=== PATIENT | male | born 1950 | race Caucasian/White ===

== ENCOUNTER 2021-02-19 02:26 | Inpatient (IN) ==
[2021-02-19] MEDS ORDERED: IOPAMIDOL 100 ML BOTTLE IV ONE (02:27)
[2021-02-19] MEDS ORDERED: HYDROmorphone 0.5 MG/0.5 ML SYRINGE IV PRN (02:40)
[2021-02-19] MEDS ORDERED: ONDANSETRON 4 MG/2 ML VIAL IV ONE (02:40)
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
[2021-02-19 03:52] LABS: Basophils # (Auto) 0.04 K/mcL (0.00-0.20); Basophils % (Auto) 0.4 % (0.0-2.0); Eosinophils # (Auto) 0.19 K/mcL (0.00-0.70); Eosinophils % (Auto) 1.8 % (0.0-7.0); Hematocrit 44.7 % (41.0-55.0); Hemoglobin 15.6 g/dL (13.5-16.5); Lymphocytes # (Auto) 1.54 K/mcL (1.50-4.80); Lymphocytes % (Auto) 14.3 % (15.0-49.0); Mean Cell Volume 88.5 fL (80.0-100.0); Mean Corpuscular HGB Conc 34.9 g/dL (31.0-36.0); Monocytes # (Auto) 0.63 K/mcL (0.10-0.90); Monocytes % (Auto) 5.9 % (1.0-12.0); Neutrophils % (Auto) 77.6 % (38.0-78.0); Platelet Count 238 K/mcL (140-440); RBC 5.05 M/mcL (4.50-5.90); Red Cell Distribution Width 12.2 % (11.5-14.5); WBC 10.7 K/mcL (4.5-11.0)
[2021-02-19 04:05] LABS: ALT/SGPT 14 U/L (<40); AST/SGOT 16 U/L (<40); Albumin 4.3 gm/dL (3.2-5.2); Albumin/Globulin Ratio 1.7 (1.0-2.3); Alkaline Phosphatase 57 U/L (39-117); Bilirubin,Total 0.7 mg/dL (0.1-1.0); Blood Urea Nitrogen 20 mg/dL (8-23); Calcium 9.1 mg/dL (8.6-10.4); Carbon Dioxide 22 mmol/L (22-30); Chloride 103 mmol/L (96-108); Globulin 2.5 gm/dL (2.2-3.7); Glomerular Filtration Rate 85; Glucose 109 mg/dL (70-105)
[2021-02-19 04:16] LABS: INR 0.9 (0.9-1.1); Prothrombin Time 12.1 sec (11.9-14.5)
[2021-02-19] MEDS ORDERED: LORazepam 2 MG/ML VIAL IV ONE (05:32)
[2021-02-19] MEDS ORDERED: fentaNYL 100 MCG/2 ML VIAL IV ONE (05:32)
[2021-02-19] MEDS ORDERED: LIDOCAINE JEL 2% 1 TUBE 5ML TOPICAL ONE (05:33)
--- NOTE | 2021-02-19 06:38 | XRay Report ---
INDICATION: NG placement confirmation TECHNIQUE: AP portable upright COMPARISON: CT scan dated 02/19/2021 FINDINGS:Esophagogastric tube with its tip in the body of the stomach. Prominent gas-filled small bowel identified in the upper abdomen. There is no pneumoperitoneum IMPRESSION: Esophagogastric tube in the stomach Interpreted and Authenticated by: Augustin Barragan 02/19/21
--- NOTE | 2021-02-19 06:59 | Cat Scan Report ---
INDICATION: abd pain COMPARISON: Previous CT scan dated 09/18/2015 TECHNIQUE: Axial images were obtained through the abdomen and pelvis. Sagittally and coronally reformatted images. 80 Isovue 370 injected intravenously. Oral contrast material was not administered FINDINGS: Examination was initially interpreted by [facility]. Lung bases:Small focal groundglass infiltrate within the lingular segment of the left upper lobe. Lung bases are otherwise negative Liver: Probable hepatic steatosis. Liver is otherwise negative. No focal intrahepatic mass. No focal abnormality. Liver contour is smooth. No evidence for cirrhosis Gallbladder, bilary: There is at least one gallstone. No gallbladder wall thickening. No dilated intra or extrahepatic bile ducts. Spleen:No splenomegaly. Normal enhancement of splenic and portal veins. Pancreas:No pancreatic mass. No peripancreatic abnormality Adrenal glands:Negative Kidneys, ureters, bladder:No solid renal mass. No hydronephrosis. No obstructing calculi. There is a benign right renal cyst. There is no hydroureter. No ureteral stone No bladder calculi or detectable mass Gastrointestinal:Previous surgery at the gastroesophageal junction. Previous partial colectomy. There is an anastomotic suture line within the sigmoid colon. Dilated fluid-filled small bowel. Appearance is consistent with mechanical small bowel obstruction. Jejunum is dilated to approximately 3.7 cm in cross-sectional diameter. There is small bowel feces with in the midline pelvis. Appearance is consistent with transition point. There is no discrete mass. No evidence for closed loop obstruction. Appendix: The appendix is removed Vascular:There is atherosclerotic calcification of the abdominal aorta. No abdominal aortic aneurysm. Celiac trunk, superior mesenteric artery, inferior mesenteric artery are patent Lymphatic:No retroperitoneal or mesenteric adenopathy Mesentery, peritoneum: No free intraperitoneal fluid. There is no pneumoperitoneum. No intra-abdominal abscess or mass. Reproductive:Mild prostatic enlargement Musculoskeletal:Degenerative disc disease at L4-L5. No lumbar compression fractures. Sacrum and pelvis are negative. Hips are negative No abdominal wall or inguinal hernia IMPRESSION: 1. Mechanical small bowel obstruction with transition point in the mid pelvis 2. Previous partial colectomy. There is a sigmoid colonic anastomosis 3. Probable hepatic steatosis. 4. Cholelithiasis. 5. Small focal groundglass infiltrate in the lingular segment of the left upper lobe The exam was performed using radiation dose optimization techniques including, but not limited to, automated exposure control, adjustment of the mA and/or kV according to patient size and use of iterative reconstruction technique. Interpreted and Authenticated by: Augustin Barragan 02/19/21
[2021-02-19] MEDS ORDERED: morphine 2 MG/ML VIAL IV PRN (07:20)
[2021-02-19 07:54] LABS: Appearance,Urine CLEAR (Clear); Bilirubin,Urine Negative (Negative); Color,Urine YELLOW; Culture Indicated,Urine No; Glucose,Urine (UA) Negative (Negative); Ketones,Urine Negative (Negative); Leukocyte Esterase,Urine Negative /ug (Negative); Mucus,Urine FEW /hpf; Nitrate,Urine Negative (Negative); Protein,Urine Negative (Negative); Specific Gravity,Urine > 1.060 (1.000-1.035); Urine Blood 0.03 mg/dL (Negative); Urine RBC 3 /hpf (0-3); Urine Squamous Epithelial Cell 0 /hpf (0-4); Urine WBC 1 /hpf (0-4)
[2021-02-19] MEDS: 0.9 % SODIUM CHLORIDE 1,000 ML IV SCH ×2 (08:53→18:04)
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
[2021-02-19] MEDS ORDERED: HYDROmorphone 1 MG/ML SYRINGE IV PRN (13:21)
[2021-02-19] MEDS ORDERED: ONDANSETRON 4 MG/2 ML VIAL IV PRN (14:03)
[2021-02-19] MEDS: PANTOPRAZOLE 40 MG VIAL IV SCH (16:58)
[2021-02-19] MEDS: METOCLOPRAMIDE 10 MG/2 ML VIAL IV SCH ×2 (16:58→23:54)
[2021-02-20] MEDS: 0.9 % SODIUM CHLORIDE 1,000 ML IV SCH ×3 (04:11→23:46)
[2021-02-20] MEDS: METOCLOPRAMIDE 10 MG/2 ML VIAL IV SCH ×4 (05:58→23:42)
--- NOTE | 2021-02-20 06:34 | XRay Report ---
INDICATION: FOLLOW -UP OF SMALL BOWEL OBSTRUCTION TECHNIQUE: Supine and upright abdomen. COMPARISON: Previous CT scan dated 02/19/2021 FINDINGS:Esophagogastric tube in the stomach. There is gas and fecal material within the colon. There is gas-filled small bowel in the left upper quadrant. Bowel gas pattern is improved consistent with resolving mechanical small bowel shortened. There is no pneumoperitoneum. No biliary or portal venous gas. No pneumatosis. IMPRESSION: Improved bowel gas pattern Interpreted and Authenticated by: Augustin Barragan 02/20/21
[2021-02-20] MEDS: PANTOPRAZOLE 40 MG VIAL IV SCH ×2 (07:11→17:55)
[2021-02-20 07:36] LABS: Basophils # (Auto) 0.03 K/mcL (0.00-0.20); Basophils % (Auto) 0.4 % (0.0-2.0); Eosinophils # (Auto) 0.31 K/mcL (0.00-0.70); Eosinophils % (Auto) 4.3 % (0.0-7.0); Hematocrit 44.3 % (41.0-55.0); Hemoglobin 14.8 g/dL (13.5-16.5); Lymphocytes # (Auto) 1.77 K/mcL (1.50-4.80); Lymphocytes % (Auto) 24.7 % (15.0-49.0); Mean Cell Volume 89.5 fL (80.0-100.0); Mean Corpuscular HGB Conc 33.4 g/dL (31.0-36.0); Mean Platelet Volume 10.2 fL (7.4-10.4); Monocytes # (Auto) 0.57 K/mcL (0.10-0.90); Monocytes % (Auto) 7.9 % (1.0-12.0); Neutrophils % (Auto) 62.7 % (38.0-78.0); Platelet Count 201 K/mcL (140-440); RBC 4.95 M/mcL (4.50-5.90); Red Cell Distribution Width 12.1 % (11.5-14.5); WBC 7.2 K/mcL (4.5-11.0)
[2021-02-20 08:12] LABS: ALT/SGPT 10 U/L (<40); AST/SGOT 13 U/L (<40); Albumin 3.9 gm/dL (3.2-5.2); Albumin/Globulin Ratio 1.8 (1.0-2.3); Alkaline Phosphatase 52 U/L (39-117); Bilirubin,Direct 0.4 mg/dL (<0.3); Bilirubin,Total 1.1 mg/dL (0.1-1.0); Blood Urea Nitrogen 12 mg/dL (8-23); Calcium 8.7 mg/dL (8.6-10.4); Carbon Dioxide 22 mmol/L (22-30); Chloride 107 mmol/L (96-108); Globulin 2.2 gm/dL (2.2-3.7); Glomerular Filtration Rate 75; Glucose 106 mg/dL (70-105); Lactate Dehydrogenase 179 U/L (135-225); Phosphorous 2.6 mg/dL (2.5-4.5); Triglycerides 94 mg/dL (<150); Uric Acid 6.3 mg/dL (2.5-8.0)
[2021-02-20] MEDS ORDERED: DIATRIZOATE MEGLU/DIATRIZO SOD 30 ML BOTTLE PO ONE (12:04)
--- NOTE | 2021-02-20 12:29 | XRay Report ---
INDICATION: R/O SMALL BOWEL OBSTRUCTION TECHNIQUE: Routine small bowel study with dilute Gastrografin COMPARISON: Previous CT scan dated 02/19/2021 FINDINGS: Contrast material passes rapidly throughout the GI tract. There is contrast material in the rectum by 30 minutes post ingestion. Small bowel appears normal. No transition point. No significant dilatation IMPRESSION: 1. Normal Gastrografin small bowel study. Contrast material in the rectum by 30 minutes post ingestion 2. Findings consistent with resolution of mechanical small bowel obstruction Interpreted and Authenticated by: Augustin Barragan 02/20/21
--- NOTE | 2021-02-20 16:56 | General Surgery Progress Note ---
SUBJECTIVE Subjective Patient information: Note initiated : 02/20/21 at 4:50 pm Service Date, if different from initiated Date: [] Patient: Aleksandr Shields 70 y/o M admitted on 02/19/21 for Diffuse Abd pain. Chief Complaint: [] Principal diagnosis: Partial small bowel obstruction Interval history: Patient did well during the night and had some flatus. Small bowel follow-through was done earlier today and it showed transit through the bowel into the colon within 1 hour. He has had multiple bowel movements since then. He was given a full liquid diet earlier today and is tolerated that. He has no discomfort at this time. White blood count 7.2, hemoglobin 14.8, hematocrit 44.3, potassium 3.8, BUN 12, creatinine 1. Constitutional Vitals: Vital Signs Temp Pulse Resp BP Pulse Ox 97.7 F 98 H 12 122/84 96 02/20/21 12:00 02/20/21 12:00 02/20/21 12:00 02/20/21 12:00 02/20/21 12:00 Period Temp Pulse Resp BP Sys/Reyes Pulse Ox Last 24 Hr 97.7 F-98.6 F 66-98 12-12 96-136/54-84 95-99 Intake and Output 02/20/21 02/20/21 02/20/21 05:59 13:59 21:59 Intake Total 1000 1000 Output Total 350 950 Balance 650 -950 1000 Weight 181 lb Patient Weight 02/21/21 05:59 Weight 181 lb Intake & Output: Intake & Output 02/20/21 02/20/21 02/20/21 05:59 13:59 21:59 Intake Total 1000 1000 Output Total 350 950 Balance 650 -950 1000 Weight 181 lb Intake: IV 1000 1000 Sodium Chloride 0.9% 1,000 ml @ 1000 1000 100 mls/hr IV .Q10H [facility] Rx#: [id number] Oral 0 Output: Gastric Drainage 75 50 Right Nare 75 50 Void Amount 275 900 Other: Urine Appearance Clear Clear Urine Color Dark Yellow Bright Yellow Urine Odor Normal Stool Size Large Stool Color Brown Stool Consistency Watery Head Head exam: Present atraumatic, normal inspection and normocephalic Eye Eye exam: Present EOMI and normal appearance Pupils: Present PERRL ENT ENT exam: Present normal exam and normal oropharynx Neck Neck exam: Present full ROM; Absent tenderness Respiratory Respiratory exam: Present normal respiratory exam and CTAB; Absent rales, rhonchi and wheezes Cardiovascular Cardiovascular exam: Present normal rate and rhythm, RRR, +S1 and +S2 GI/Abdominal GI/Abdominal exam: Present normal bowel sounds and soft; Absent distended, guarding and tenderness Extremities Exam Extremities exam: Present full ROM, normal inspection and neurovascular intact Back Exam Back exam: Absent tenderness Neurological Exam Neurological exam: Present normal gait, oriented X3 and reflexes normal Psychiatric Psychiatric exam: Present normal affect and normal mood A/P Assessment and plan (1) Small bowel obstruction due to postoperative adhesions: Status: Acute (2) Depression: Status: Chronic (3) GERD (gastroesophageal reflux disease): Status: Chronic Qualifiers: Esophagitis presence: without esophagitis Qualified Code(s): K21.9 - Gastro-esophageal reflux disease without esophagitis (4) Polymyalgia rheumatica: Status: Chronic (5) Cardiomyopathy: Status: Chronic Qualifiers: Cardiomyopathy type: ischemic Qualified Code(s): I25.5 - Ischemic cardiomyopathy (6) Presence of cardiac pacemaker: Status: Chronic Comment: Permanent [employer] Breaks XT DR MRI, dual chamber pacemaker - Serial # [id number] (7) CAD (coronary artery disease): Status: Chronic Qualifiers: Coronary Disease-Associated Artery/Lesion type: [place] artery [place] vs. transplanted heart: [place] heart Associated angina: without angina Qualified Code(s): I25.10 - Atherosclerotic heart disease of [place] coronary artery without angina pectoris Narrative A/P Narrative: Follow-up abdominal x-rays in the morning Time Spent With Patient Time: Total time spent is greater than 50% in coordination of care (as documented) at patient's floor/unit and/or counseling patient:
[2021-02-21] MEDS: METOCLOPRAMIDE 10 MG/2 ML VIAL IV SCH ×3 (05:33→16:23)
--- NOTE | 2021-02-21 06:44 | XRay Report ---
INDICATION: FOLLOW -UP OF SMALL BOWEL OBSTRUCTION TECHNIQUE: Supine and upright abdomen. COMPARISON: Previous small bowel study dated 02/20/2021. Previous CT scan dated 02/19/2021 FINDINGS:There is contrast material within the colon. No residual contrast material within small bowel. Appearance is improved and consistent with resolution of mechanical small bowel obstruction IMPRESSION: Resolution of mechanical small bowel obstruction Interpreted and Authenticated by: Augustin Barragan 02/21/21
[2021-02-21 06:57] LABS: Basophils # (Auto) 0.04 K/mcL (0.00-0.20); Basophils % (Auto) 0.7 % (0.0-2.0); Eosinophils # (Auto) 0.34 K/mcL (0.00-0.70); Eosinophils % (Auto) 5.9 % (0.0-7.0); Hemoglobin 13.6 g/dL (13.5-16.5); Lymphocytes # (Auto) 1.82 K/mcL (1.50-4.80); Lymphocytes % (Auto) 31.7 % (15.0-49.0); Mean Cell Volume 91.1 fL (80.0-100.0); Mean Corpuscular HGB Conc 33.2 g/dL (31.0-36.0); Mean Platelet Volume 10.2 fL (7.4-10.4); Monocytes # (Auto) 0.41 K/mcL (0.10-0.90); Monocytes % (Auto) 7.1 % (1.0-12.0); Neutrophils % (Auto) 54.6 % (38.0-78.0); Platelet Count 183 K/mcL (140-440); WBC 5.7 K/mcL (4.5-11.0)
[2021-02-21] MEDS: PANTOPRAZOLE 40 MG VIAL IV SCH ×2 (07:28→16:23)
[2021-02-21 08:04] LABS: ALT/SGPT 8 U/L (<40); AST/SGOT 10 U/L (<40); Albumin 3.5 gm/dL (3.2-5.2); Albumin/Globulin Ratio 1.5 (1.0-2.3); Alkaline Phosphatase 47 U/L (39-117); Bilirubin,Direct 0.2 mg/dL (<0.3); Bilirubin,Total 0.8 mg/dL (0.1-1.0); Blood Urea Nitrogen 10 mg/dL (8-23); Calcium 8.8 mg/dL (8.6-10.4); Carbon Dioxide 21 mmol/L (22-30); Chloride 111 mmol/L (96-108); Globulin 2.3 gm/dL (2.2-3.7); Glomerular Filtration Rate 85; Glucose 98 mg/dL (70-105); Lactate Dehydrogenase 168 U/L (135-225); Phosphorous 2.5 mg/dL (2.5-4.5); Triglycerides 70 mg/dL (<150); Uric Acid 6.1 mg/dL (2.5-8.0)
[2021-02-21] MEDS: 0.9 % SODIUM CHLORIDE 1,000 ML IV SCH (10:14)
--- NOTE | 2021-02-26 12:26 | Discharge Summary ---
Discharge Provider Provider Patient information: Note initiated : 02/26/21 at 12:21 pm Service Date, if different from initiated Date: [] Patient: Aleksandr Shields 70 y/o M admitted on 02/19/21 for Diffuse Abd pain. Chief Complaint: [] Date of admission: 02/19/21 07:46 Discharge date: 02/21/21 Primary care physician: Shimon Penaloza MD Admitting clinician: Michael Garrett Consults: 02/20/21 07:17 Consult to Physician [CONS] Routine Comment: Consulting Provider: Michael Garrett Reason For Exam: Physician to Consult Attending physician on discharge: Michael Garrett Discharging clinician: Michael Garrett COURSE Hospital Course Hospital course: 70-year-old male who presented to the emergency room with acute abdominal pain nausea and vomiting. Initial evaluation suggested intestinal obstruction. Review of his abdominal CT however revealed of equalization of intestinal contents in the mid small bowel with dilated distal bowel and colon suggesting severe adynamic ileus versus partial obstruction. He was treated with nasogastric decompression and the following day was given Gastrografin for small bowel follow-through. Gastrografin transit time was 90minutes and the patient had multiple bowel movements thereafter. He was treated symptomatically and nasogastric tube was removed. His diet was advanced and he tolerated it we ll. On the day of discharge she was asymptomatic and was discharged in stable satisfactory condition. Discharge diagnosis: Partial small bowel obstruction due to adhesions Secondary discharge diagnosis: Hypertension Gastroesophageal reflux disease History of permanent cardiac pacemaker Reason for admission: Small bowel obstruction Procedures: None Pertinent studies/significant findings: CT of abdomen and pelvis with contrast Gastrografin small bowel follow-through Complications: None Time Spent with Patient Time attestation: Total time spent providing and/or coordinating discharge services: Physical Examination Vital Signs Vital signs: Temp Pulse Resp BP Pulse Ox 98.1 F 70 18 152/93 98 02/21/21 18:00 02/21/21 18:00 02/21/21 18:00 02/21/21 18:00 02/21/21 18:00 General physical appearance General physical exam: well developed, well nourished and no distress Eyes Eye exam: PERRL and normal ocular movement ENT ENT exam: normal mucosa and decreased hearing Head Head exam IM: Present atraumatic, normal inspection and normocephalic Neck Neck exam: no masses, no bruits, trachea midline, no lymphadenopathy and no venous distension Cardiovascular Cardiovascular exam IM: Present normal rate and rhythm, JVD, RRR, +S1 and +S2 Respiratory Respiratory exam: normal expansion, normal respiratory effort and clear to auscultation Abdomen Abdomen: Present soft, tender (Mild tenderness none hypogastrium) and bowel sounds (Good active bowel sounds); Absent masses Integumentary Integumentary: Present no rash, no growths and no abnormal pigmentation Neurologic Neurologic: Present normal coordination and normal sensation Musculoskeletal Musculoskeletal: Present normal gait, normal posture and other (Absent flexion of fingers of left hand) Psychiatric Psychiatric: Present oriented to time, oriented to person, oriented to place, speech is normal and memory intact Discharge Plan Patient/Caregiver Discharge Instructions Activity: increase activity as tolerated Diet: Regular Diet Instructions: Acute Abdominal Pain (DC), Bowel Obstruction (DC) Activity Restrictions/Additional Instructions: Resume home diet as tolerated. Increase activity as tolerated. Follow up as needed with Primary Care Physician. Take all medication as directed. Return to ER for fever, chills, uncontrolled pain, inability to urinate or have a bowel movement , nausea and/or vomiting, swelling, redness, signs of infection, shortness of breath, chest pain, return of symptoms, or other acute symptom Prescriptions: Continued lisinopril 5 mg tablet 5 mg PO QDAY Qty: 90 RF: 4 sotalol 80 mg tablet 40 mg PO BID RF: 0 Follow Up Plan Follow up with: Shimon Penaloza MD [Primary Care Provider] - (Follow-up as needed with PCP. ) Patient Disposition: Home, Self-Care Prognosis: Good Rehab Potential: Good I certify that the patient requires SNF services: No Overall status at discharge: patient is back to baseline Discharge Orders: Discharge Order (Routine); Ordered 02/21/21 Ordered By: Michael Garrett Pending Pending Pending: Diet Regular Diet Start FriFeb 21 1653 Shift Summary 02/21/21 03:47 Shift Summary by Mariana Herrera&Shin, pleasant and cooperative. NG removed yesterday. Tolerating [place] diet with no nausea. No complaints of pain. Up ad fletcher in room, steady on feet. BT active, had a couple small loose BM's. Voiding without issue. NS at 100 mls/hr to IV in RFA. Will have abdominal x-ray this morning. He's hoping to d/c later today. Initialized on 02/21/21 03:47 - END OF NOTE
== END 2021-02-21 18:25 | disposition home or self-care (01) | DRG 390 ==
LOC: ED 02:26 → MEDSUR 07:46
PROVIDERS: ADMIT Family Medicine Adult Medicine; ATTEND Family Medicine Adult Medicine

== ENCOUNTER 2024-02-16 09:20 | Observation (INO) ==
[2024-02-16] MEDS ORDERED: IOPAMIDOL 100 ML BOTTLE IV ONE (09:21)
[2024-02-16] MEDS: 0.9 % SODIUM CHLORIDE 500 ML IV ONE (10:08)
[2024-02-16] MEDS: DICYCLOMINE 20 MG/2 ML VIAL IM ONE (10:08)
[2024-02-16 10:11] LABS: Basophils # (Auto) 0.04 K/mcL (0.00-0.30); Basophils % (Auto) 0.5 % (0.0-2.0); Eosinophils # (Auto) 0.33 K/mcL (0.00-0.70); Hematocrit 48.1 % (40.1-51.0); Hemoglobin 16.2 g/dL (13.7-17.5); Lymphocytes # (Auto) 1.75 K/mcL (1.50-4.80); Lymphocytes % (Auto) 21.1 % (15.5-49.0); Mean Cell Volume 86.8 fL (80.0-100.0); Mean Corpuscular HGB Conc 33.7 g/dL (31.0-36.0); Mean Platelet Volume 9.9 fL (8.8-12.5); Monocytes # (Auto) 0.56 K/mcL (0.10-0.90); Monocytes % (Auto) 6.7 % (1.0-12.0); Neutrophils % (Auto) 67.6 % (38.0-78.0); Platelet Count 331 K/mcL (140-440); RBC 5.54 M/mcL (4.63-6.08); Red Cell Distribution Width 12.5 % (11.5-14.5); WBC 8.3 K/mcL (4.5-11.0)
[2024-02-16 10:29] LABS: ALT/SGPT 17 U/L (<40); AST/SGOT 21 U/L (<40); Albumin 4.4 gm/dL (3.2-5.2); Albumin/Globulin Ratio 1.6 (1.0-2.3); Alkaline Phosphatase 67 U/L (39-117); Bilirubin,Total 0.5 mg/dL (0.1-1.0); Blood Urea Nitrogen 14 mg/dL (8-23); Calcium 9.9 mg/dL (8.6-10.4); Carbon Dioxide 23 mmol/L (22-30); Chloride 104 mmol/L (96-108); Globulin 2.7 gm/dL (2.2-3.7); Glomerular Filtration Rate 83; Glucose 119 mg/dL (70-105)
[2024-02-16 11:57] LABS: Appearance,Urine Clear (Clear); Bilirubin,Urine Negative (Negative); Color,Urine Yellow; Culture Indicated,Urine No; Glucose,Urine (UA) Negative (Negative); Ketones,Urine Negative (Negative); Leukocyte Esterase,Urine Negative /uL (Negative); Nitrate,Urine Negative (Negative); PH,Urine 5.5 (5.0-9.0); Protein,Urine Negative (Negative); Specific Gravity,Urine <= 1.005 (1.000-1.035); Urine Blood Negative ery/mcL (Negative); Urobilinogen,Urine Normal
[2024-02-16] MEDS ORDERED: ONDANSETRON 4 MG/2 ML VIAL IV PRN (12:54)
[2024-02-16] MEDS: 0.9 % SODIUM CHLORIDE 1,000 ML IV SCH (14:21)
[2024-02-16] MEDS: 0.9 % SODIUM CHLORIDE 10 ML SYRINGE IV SCH (14:25)
[2024-02-16] MEDS: cefTRIAXone 2 GM in DEXTROSE 5% IN WATER 50 ML IV SCH (14:30)
[2024-02-16] MEDS: cefTRIAXone 2 GM VIAL IM SCH (14:37)
[2024-02-16] MEDS: HYDROmorphone 1 MG/ML SYRINGE IV PRN (15:05)
[2024-02-16] MEDS: METOCLOPRAMIDE 10 MG/2 ML VIAL IV SCH (17:26)
[2024-02-17 07:31] LABS: Basophils # (Auto) 0.04 K/mcL (0.00-0.30); Basophils % (Auto) 0.6 % (0.0-2.0); Eosinophils # (Auto) 0.35 K/mcL (0.00-0.70); Eosinophils % (Auto) 5.7 % (0.0-7.0); Hemoglobin 13.7 g/dL (13.7-17.5); Lymphocytes % (Auto) 27.5 % (15.5-49.0); Mean Cell Volume 94.1 fL (80.0-100.0); Mean Corpuscular HGB Conc 31.9 g/dL (31.0-36.0); Mean Platelet Volume 10.9 fL (8.8-12.5); Monocytes # (Auto) 0.51 K/mcL (0.10-0.90); Monocytes % (Auto) 8.2 % (1.0-12.0); Neutrophils % (Auto) 57.7 % (38.0-78.0); Platelet Count 233 K/mcL (140-440); RBC 4.57 M/mcL (4.63-6.08); Red Cell Distribution Width 12.9 % (11.5-14.5); WBC 6.2 K/mcL (4.5-11.0)
[2024-02-17 07:41] LABS: ALT/SGPT 13 U/L (<40); AST/SGOT 18 U/L (<40); Albumin 3.7 gm/dL (3.2-5.2); Albumin/Globulin Ratio 1.9 (1.0-2.3); Alkaline Phosphatase 52 U/L (39-117); Bilirubin,Direct < 0.2 mg/dL (0-0.3); Bilirubin,Total 0.6 mg/dL (0.1-1.0); Blood Urea Nitrogen 11 mg/dL (8-23); Calcium 8.8 mg/dL (8.6-10.4); Carbon Dioxide 24 mmol/L (22-30); Chloride 106 mmol/L (96-108); Glomerular Filtration Rate 88; Glucose 99 mg/dL (70-105); Lactate Dehydrogenase 145 U/L (135-225); Phosphorous 2.7 mg/dL (2.5-4.5); Triglycerides 98 mg/dL (<150); Uric Acid 5.7 mg/dL (2.5-8.0)
[2024-02-17] MEDS: METOCLOPRAMIDE 10 MG TABLET PO SCH (17:12)
== END 2024-02-18 10:30 ==
LOC: ED 09:20 → MEDSUR 09:20
PROVIDERS: ADMIT Family Medicine Adult Medicine; ATTEND Family Medicine Adult Medicine